=== PATIENT | male | born 1955 | race Two or more races ===

== ENCOUNTER 2024-06-16 21:18 | Inpatient (IN) | payer OTHER ==
[~2024-06-16] VITALS: Ht 152.4 cm; Wt 76.2 kg
--- NOTE | 2024-06-16 21:44 | NUR ---
PTE ALERTA Y ORIENTADO X3. REFIERE DOLOR DE PECHO Y DOLOR EN EL BRAZO ED . SE MARIUM SV Y SE REALIZA EKG Y SE PRESENTA A DR. COLE. SE REALIZA DXT 430MG/DL, PTE REFIERE QUE NO SE MEAD ESTADO TOMANDO MEDICAMENTOS PARA NOONAN DIABETES
--- NOTE | 2024-06-16 22:11 | NUR ---
SE ORIENTA PTE SOBRE TX A SEGUIR, EL MISMO REFIERE ENTENDER. SE HACE MUESTRAS DE LAB BAJO MEDIDAS ASEPTICAS
[2024-06-16] MEDS ORDERED: INSULIN REGULAR, HUMAN 1,000 UNIT/10 ML UNITS SUBCUTANEO ONE (22:30)
[2024-06-16] MEDS ORDERED: INSULIN REGULAR, HUMAN 1,000 UNIT/10 ML UNITS ONE (22:31)
[2024-06-16 23:07] LABS: HEMATOCRIT 47.6 % (39.0-48.0); HEMOGLOBIN 15.8 g/dL (13-16.00); MEAN CELL VOLUME 84.9 fL (80.0-100.00); MEAN CORPUSCULAR HEMOGLOBIN 28.1 pg (27.00-32.0); MEAN CORPUSCULAR HGB CONC 33.1 g/dl (32.0-36.0); PLATELET COUNT 215 K/uL (150-450); RED CELL DISTRIBUTION WIDTH 14.6 % (11.5-14.5)
[2024-06-16 23:54] LABS: ALBUMIN 3.8 gm/dL (3.4-5.0); BILIRUBIN TOTAL 0.74 mg/dL (0.3-1.2); CALCIUM 9.7 mg/dL (8.5-10.1); CREATININE SERUM 3.32 mg/dL (0.70-1.30); GFR 18.66; GLOBULINA 4.4 G/DL (2.4-3.5); POTASSIUM 4.54 mEq/L (3.5-5.1); TOTAL PROTEIN 8.2 gm/dL (6.4-8.2)
--- NOTE | 2024-06-17 00:07 | NUR ---
PACIENTE SE ENCUENTRA MAREADO, SE COLOCA DE INMEDIATO EN MURIEL AJAY 13. SE MARIUM S/V Y DXT Y EKG Y SE NOTIFICAN A MD DE TURNO.
[2024-06-17] MEDS ORDERED: INSULIN REGULAR, HUMAN 1,000 UNIT/10 ML UNITS IV STA (02:11)
[2024-06-17] MEDS ORDERED: INSULIN REGULAR, HUMAN 1,000 UNIT/10 ML UNITS ONE (02:13)
[2024-06-17] MEDS ORDERED: MAG HYDROX/ALUMINUM HYD/SIMETH 30 ML BLIST.PACK PO ONE ×3 (02:39→04:45)
[2024-06-17] MEDS ORDERED: FAMOtidine 200mg/20ml VIAL ONE (02:39)
[2024-06-17] MEDS ORDERED: FAMOTIDINE/PF 20 MG/2 ML VIAL IV PUSH ONE (02:45)
[2024-06-17] MEDS ORDERED: RINGERS SOLUTION,LACTATED 1,000 ML IV STA (04:07)
[2024-06-17] MEDS ORDERED: ASPIRIN 81 MG TAB.CHEW PO STA (04:08)
[2024-06-17] MEDS ORDERED: CLOPIDOGREL BISULFATE 75 MG TABLET PO STA (04:09)
[2024-06-17] MEDS ORDERED: NITROGLYCERIN IN 5 % DEXTROSE 50 MG/250 ML BOTTLE IV STA (04:09)
[2024-06-17] MEDS ORDERED: CLOPIDOGREL BISULFATE 75 MG TABLET PO ONE (04:17)
[2024-06-17] MEDS ORDERED: NITROGLYCERIN IN 5 % DEXTROSE 50 MG/250 ML BOTTLE IV ONE (04:17)
[2024-06-17] MEDS ORDERED: METOCLOPRAMIDE HCL 5 MG/ML VIAL IM STA (04:48)
[2024-06-17] MEDS ORDERED: METOCLOPRAMIDE HCL 5 MG/ML VIAL ONE (04:59)
--- NOTE | 2024-06-17 05:13 | NUR ---
SE LE ROSAS 2DA MUESTRA DE TROPONIA ,NIA ORDEN DEL MEDICO Y SE LE COMIEIZA EN ORDEN MEDICA Y SE LE ADMINISTRA MEDICMANTOS SUGUN ORDEN MEDICA.SE LE COMIENZA EN TRIDIL.
--- NOTE | 2024-06-17 07:07 | NUR ---
SE RECIBE PTE DORMIDO EN CAMA BAJA #16 EN UNIDAD DE CHEST PAIN, CONECTADO A MONITOR CARDIACO Y OXIMETRIA DE PULSO CONTINUA, CANALIZADO EN MANO IZQUIERDA CON ANGIO #24 Y EN BRAZO ED CON ANGIO #20 LOS CUALES ESTAN PATENTES, LIBRES DE EDEMA Y ERITEMA, RECIBIENDO IV FLUIDS Y TRIDIL 50MG/250ML BAJANDO A 1ML/HR. SE MIDEN SV Y SE MANTIENE BAJO OBSERVACION POR CAMBIOS SIGNIFICATIVOS.
[2024-06-17] MEDS ORDERED: NITROGLYCERIN 50MG IN NSS (KIT INCLUYE LINEA) IV SCH (08:15)
[2024-06-17] MEDS ORDERED: INSULIN LISPRO 1,000 UNIT/10 ML UNITS SUBCUTANEO PRN (08:30)
[2024-06-17] MEDS ORDERED: DEXTROSE 50 % IN WATER 0.5 G/ML DISP.SYRIN IV PRN (08:30)
[2024-06-17] MEDS ORDERED: ENOXAPARIN SODIUM 80 MG/0.8 ML SYRINGE SUBCUTANEO SCH (09:00)
[2024-06-17] MEDS ORDERED: ASPIRIN 325 MG TABLET PO SCH (09:00)
[2024-06-17] MEDS ORDERED: LOSARTAN POTASSIUM 50 MG TABLET PO SCH (09:00)
[2024-06-17] MEDS ORDERED: METOPROLOL SUCCINATE 25 MG TAB.SR.24H PO SCH (09:00)
[2024-06-17] MEDS ORDERED: INSULIN LISPRO 1,000 UNIT/10 ML UNITS SUBCUTANEO SCH ×2 (09:00→17:00)
[2024-06-17] MEDS ORDERED: NITROGLYCERIN IN 5 % DEXTROSE 250 ML IV SCH (09:30)
[2024-06-17] MEDS ORDERED: INSULIN LISPRO 1,000 UNIT/10 ML UNITS SUBCUTANEO ONE (10:38)
[2024-06-17] MEDS ORDERED: INSULIN GLARGINE,HUM.REC.ANLOG 1,000 UNITS/10 ML UNITS SUBCUTANEO SCH (17:00)
[2024-06-17] MEDS ORDERED: ACETAMINOPHEN 500 MG GEL..CAP PO PRN ×2 (18:15→18:19)
[2024-06-17] MEDS ORDERED: CLOPIDOGREL BISULFATE 75 MG TABLET PO SCH (20:35)
[2024-06-17] MEDS ORDERED: ATORVASTATIN CALCIUM 40 MG TABLET PO SCH (20:35)
[2024-06-17] MEDS ORDERED: FAMOTIDINE/PF 20 MG/2 ML VIAL IV PUSH SCH (21:00)
[2024-06-18 08:26] LABS: CALCIUM 8.7 mg/dL (8.5-10.1); CHOL HDL RATIO 3.9 (0-5.0); CREATININE SERUM 2.39 mg/dL (0.70-1.30); GFR 27.27; POTASSIUM 4.93 mEq/L (3.5-5.1)
[2024-06-18] MEDS ORDERED: ASPIRIN 81 MG TAB.CHEW PO SCH (09:00)
[2024-06-18] MEDS ORDERED: ENOXAPARIN SODIUM 80 MG/0.8 ML SYRINGE SUBCUTANEO SCH (09:00)
[2024-06-18] MEDS ORDERED: ONDANSETRON HCL 2 MG/ML VIAL IV SCH (12:00)
[2024-06-18] MEDS ORDERED: NITROGLYCERIN IN 5 % DEXTROSE 250 ML IV SCH ×2 (15:00→15:15)
[2024-06-18] MEDS ORDERED: INSULIN GLARGINE,HUM.REC.ANLOG 1,000 UNITS/10 ML UNITS SUBCUTANEO SCH ×2 (17:00)
[2024-06-18] MEDS ORDERED: TEMAZEPAM 15 MG CAPSULE PO SCH (21:00)
[2024-06-18] MEDS ORDERED: TRAZODONE HCL 50 MG TABLET PO SCH (21:00)
[2024-06-18] MEDS ORDERED: CLONAZEPAM 1 MG TABLET PO SCH (21:00)
[2024-06-19 08:32] LABS: CALCIUM 8.5 mg/dL (8.5-10.1); CREATININE SERUM 2.23 mg/dL (0.70-1.30); GFR 29.54; POTASSIUM 4.17 mEq/L (3.5-5.1)
[2024-06-19] MEDS ORDERED: ISOSORBIDE MONONITRATE 30 MG TABLET PO SCH (09:00)
[2024-06-19 12:56] LABS: CALCIUM 8.7 mg/dL (8.5-10.1); CREATININE SERUM 2.26 mg/dL (0.70-1.30); GFR 29.09; POTASSIUM 4.19 mEq/L (3.5-5.1)
[2024-06-19] MEDS ORDERED: 0.9 % SODIUM CHLORIDE 1,000 ML IV SCH (13:00)
[2024-06-20 04:55] LABS: HEMATOCRIT 37.4 % (39.0-48.0); HEMOGLOBIN 12.1 g/dL (13-16.00); MEAN CORPUSCULAR HEMOGLOBIN 27.9 pg (27.00-32.0); MEAN CORPUSCULAR HGB CONC 32.4 g/dl (32.0-36.0); PLATELET COUNT 134 K/uL (150-450); RED BLOOD COUNT 4.35 M/uL (4.00-6.00); RED CELL DISTRIBUTION WIDTH 14.4 % (11.5-14.5)
[2024-06-20] MEDS ORDERED: ALLOPURINOL 300 MG TABLET PO SCH (11:35)
[2024-06-20] MEDS ORDERED: INSULIN NPH HUM/REG INSULIN HM 1,000 UNIT/10 ML UNITS SUBCUTANEO STA (12:43)
[2024-06-20] MEDS ORDERED: INSULIN NPH HUM/REG INSULIN HM 1,000 UNIT/10 ML UNITS SUBCUTANEO ONE (13:05)
[2024-06-20 13:40] LABS: CREATININE URINE RANDOM 57.3 MG/DL (30-125)
[2024-06-20 16:32] LABS: URINE APPEARANCE Clear; URINE BILIRRUBIN Negative (NEGATIVE); URINE BLOOD Negative; URINE COLOR Yellow; URINE KETONE Negative (NEGATIVE); URINE LEUKOCYTE Negative; URINE NITRATE Negative; URINE PROTEIN Negative (NEGATIVE); URINE UROBILINOGEN 0.2 E.U./dl
[2024-06-20 16:36] LABS: ALBUMIN 1.7 gm/dL (3.4-5.0); BILIRUBIN TOTAL 0.37 mg/dL (0.3-1.2); CREATININE SERUM 1.57 mg/dL (0.70-1.30); GFR 44.29; GLOBULINA 2.1 G/DL (2.4-3.5); POTASSIUM 4.16 mEq/L (3.5-5.1); TOTAL PROTEIN 3.8 gm/dL (6.4-8.2); URIC ACID 6.4 mg/dL (3.5-8.5)
[2024-06-20 16:36] LABS: URINE BACTERIA 11.2 uL (0.0-1933)
[2024-06-20 16:42] LABS: URINE CAST 0.15 uL (0.0-1.40); URINE EPITHELIAL CELLS 1.2 uL (0.0-38.8); URINE GLUCOSE 500 MG/DL (NEGATIVE); URINE RBC 0.6 uL (0.0-20.8); URINE WBC 1.2 uL (0.0-23.2)
[2024-06-20 16:49] LABS: CALCIUM 5.8 mg/dL (8.5-10.1)
[2024-06-20 16:50] LABS: PHOSPHOROUS 1.6 mg/dL (2.5-4.9)
[2024-06-21] MEDS ORDERED: CALCIUM GLUCONATE 100 MG/ML VIAL IV ONE
[2024-06-21] MEDS ORDERED: NAPH,MB-DB/K PH,MBDB 1 PKT PACKET PO SCH (01:00)
[2024-06-21] MEDS ORDERED: NAPH,MB-DB/K PH,MBDB 1 PKT PACKET PO ONE (01:12)
[2024-06-21 07:41] LABS: ALBUMIN 2.5 gm/dL (3.4-5.0); CALCIUM 8.6 mg/dL (8.5-10.1); CREATININE SERUM 1.92 mg/dL (0.70-1.30); GFR 35.11; PHOSPHOROUS 2.1 mg/dL (2.5-4.9); POTASSIUM 4.33 mEq/L (3.5-5.1)
[2024-06-21] MEDS ORDERED: INSULIN NPH HUM/REG INSULIN HM 1,000 UNIT/10 ML UNITS SUBCUTANEO SCH (08:00)
[2024-06-21] MEDS ORDERED: ALLOPURINOL 100 MG TABLET PO SCH (10:28)
[2024-06-22 07:44] LABS: ALBUMIN 2.5 gm/dL (3.4-5.0); BILIRUBIN TOTAL 0.35 mg/dL (0.3-1.2); CALCIUM 8.1 mg/dL (8.5-10.1); CREATININE SERUM 1.85 mg/dL (0.70-1.30); GFR 36.65; GLOBULINA 2.9 G/DL (2.4-3.5); POTASSIUM 4.68 mEq/L (3.5-5.1); TOTAL PROTEIN 5.4 gm/dL (6.4-8.2)
[2024-06-22] MEDS ORDERED: INSULIN NPH HUM/REG INSULIN HM 1,000 UNIT/10 ML UNITS SUBCUTANEO SCH (08:00)
[2024-06-22] MEDS ORDERED: INSULIN NPH HUM/REG INSULIN HM 1,000 UNIT/10 ML UNITS SUBCUTANEO ONE (11:20)
[2024-06-22] MEDS ORDERED: LACTULOSE 20 G/30 ML BLIST.PACK PO SCH (12:02)
[2024-06-22] MEDS ORDERED: MAGNESIUM HYDROXIDE 30 ML BLIST.PACK PO SCH (13:16)
[2024-06-22] MEDS ORDERED: MINERAL OIL 30 ML BLIST.PACK PO SCH (13:16)
[2024-06-22] MEDS ORDERED: DOCUSATE CALCIUM 240 MG CAPSULE PO SCH (17:00)
[2024-06-22] MEDS ORDERED: SODIUM CHLORIDE 0.45 % 1,000 ML IV SCH (23:45)
[2024-06-24 05:44] LABS: ALBUMIN 2.6 gm/dL (3.4-5.0); CALCIUM 8.5 mg/dL (8.5-10.1); CREATININE SERUM 2.02 mg/dL (0.70-1.30); GFR 33.11; PHOSPHOROUS 3.1 mg/dL (2.5-4.9); POTASSIUM 4.34 mEq/L (3.5-5.1)
[2024-06-24] MEDS ORDERED: ONDANSETRON HCL 2 MG/ML VIAL IV PRN (06:15)
[2024-06-24 10:29] LABS: INR 1.04; PARTIAL THROMBOPLASTIN TIME 32.2 SECONDS (22.0-34.0); PROTHROMBIN TIME 10.9 SECONDS (9.0-11.5)
[2024-06-25] MEDS ORDERED: ENOXAPARIN SODIUM 80 MG/0.8 ML SYRINGE SUBCUTANEO NR (13:00)
[2024-06-25] MEDS ORDERED: ACETAMINOPHEN 500 MG GEL..CAP PO STA (22:14)
[2024-06-25] MEDS ORDERED: ACETAMINOPHEN 500 MG GEL..CAP PO PRN (22:15)
[2024-06-25] MEDS ORDERED: CLONAZEPAM 1 MG TABLET PO SCH (22:30)
[2024-06-25] MEDS ORDERED: TEMAZEPAM 15 MG CAPSULE PO SCH (22:30)
== END 2024-06-26 08:19 | disposition designated cancer center or children's hospital (05) | DRG 281 ==
LOC: ER 21:19 → MEDI 06-17 08:18 → SEC-K 06-17 08:18 → MEDI 06-17 12:53
PROVIDERS: General Practice; Internal Medicine; Internal Medicine Endocrinology, Diabetes & Metabolism; Internal Medicine Nephrology; ADMIT Internal Medicine; ATTEND Internal Medicine
PROC: 4A12X4Z Monitoring of Cardiac Electrical Activity, External Approach (ICD-10-PCS; principal; 2024-06-17)
PROC: B246ZZZ Ultrasonography of Right and Left Heart (ICD-10-PCS; 2024-06-17)
PROC: B020ZZZ Computerized Tomography (CT Scan) of Brain (ICD-10-PCS; 2024-06-18)
PROC: B345ZZZ Ultrasonography of Bilateral Common Carotid Arteries (ICD-10-PCS; 2024-06-18)
PROC: B348ZZZ Ultrasonography of Bilateral Internal Carotid Arteries (ICD-10-PCS; 2024-06-18)
PROC: BT43ZZZ Ultrasonography of Bilateral Kidneys (ICD-10-PCS; 2024-06-19)
DX: I21.4 Non-ST elevation (NSTEMI) myocardial infarction (principal); E87.0 Hyperosmolality and hypernatremia; G45.9 Transient cerebral ischemic attack, unspecified; N17.9 Acute kidney failure, unspecified; I24.9 Acute ischemic heart disease, unspecified; I13.10 Hypertensive heart and chronic kidney disease without heart failure, with stage 1 through stage 4 chronic kidney disease, or unspecified chronic kidney disease; I25.10 Atherosclerotic heart disease of native coronary artery without angina pectoris; E11.22 Type 2 diabetes mellitus with diabetic chronic kidney disease; E11.65 Type 2 diabetes mellitus with hyperglycemia; N18.9 Chronic kidney disease, unspecified; K59.00 Constipation, unspecified; E83.42 Hypomagnesemia